=== PATIENT | male | born 1950 | race Caucasian/White ===

== ENCOUNTER 2021-10-22 21:23 | Emergency (ER) | payer MEDICARE, SELFPAY ==
[2021-10-22 21:55] VITALS: BP 195/92; PULSE 70; RESP 18; TEMP 36.8; O2SAT 100
--- NOTE | 2021-10-22 23:16 | ED.LOWEXIN ---
HPI - Extremity Injury (Lower) General Chief Complaint: Extremity Injury, Lower Stated Complaint: possible DVT Time Seen by Provider: 10/22/21 23:03 Source: patient Mode of arrival: ambulatory Limitations: no limitations History of Present Illness HPI Narrative: Pt presents with LLE swelling and some nots and redness to the left calf. Pt denies CP or SOB. Pt has a history of DVT and PE and takes Coumadin. Relieving factors: nothing Exacerbating factors: nothing Related Data Allergies Allergy/AdvReac Type Severity Reaction Status Date / Time No Known Allergies Allergy Mild Verified 10/22/21 22:04 Review of Systems Review of Systems: All systems reviewed & are unremarkable except as noted in HPI and below Exam Const: General: no acute distress Orientation/consciousness: patient oriented x3 Resp: Effort & Inspection: normal respiratory effort Auscultation: clear to auscultation bilaterally Cardio: Rate: regular rate Rhythm: regular rhythm GI: GI Palp: Yes Soft to palpation Auscultation: normal bowel sounds Neuro: General: patient oriented x3, moves all extremities and no focal motor deficits Speech: normal speech Extrem: Other: both legs edematous but left greater than right with area of erythema on medial side and small lumpts on back of left calf Psych: Appearance: grossly normal Mental Status: mental status grossly normal Thought content: Yes Normal thought content present Course Vital Signs Vital signs: Vital Signs Temperature 98.3 F 10/22/21 21:55 Pulse Rate 70 10/22/21 21:55 Respiratory Rate 18 10/22/21 21:55 Blood Pressure 195/92 H 10/22/21 21:55 Pulse Oximetry 100 10/22/21 21:55 Temperature 98.3 F 10/22/21 21:55 Pulse Rate 72 10/23/21 00:43 Respiratory Rate 18 10/23/21 00:43 Blood Pressure 173/92 H 10/23/21 00:43 Pulse Oximetry 100 10/23/21 00:43 MDM - Extremity Injury (Lower) Lab Data Result diagrams: 10/22/21 23:15 10/22/21 23:15 Labs: Lab Results 10/22/21 10/22/21 10/22/21 Range/Units 23:15 23:15 23:15 WBC 6.4 (4.5-10.0) K/mm3 RBC 5.28 (4.6-6.20) M/mm3 Hgb 16.5 (14.0-18.0) g/dL Hct 48.8 (42.0-52.0) % MCV 92.4 (80-100) fl MCH 31.3 (26-34) pg MCHC 33.8 (32-36) g/dl RDW 13.4 (11.5-14.5) % Plt Count 145 L (150-375) k/mm3 MPV 11.8 H (7.4-10.4) fl Immature Gran % (Auto) 0.2 (0-0.5) % Neut % (Auto) 64.4 (45.5-73.1) % Lymph % (Auto) 25.5 (18.3-44.2) % [place] % (Auto) 7.5 (2.6-8.5) % Eos % (Auto) 1.9 (0-4.4) % Baso % (Auto) 0.5 (0.2-1.2) % Lymph # (Auto) 1.63 (0.9-3.2) K/mm3 [place] # (Auto) 0.5 (0.1-0.6) K/mm3 Eos # (Auto) 0.1 (0-0.3) K/mm3 Baso # (Auto) 0.0 (0.0-0.1) K/mm3 Abs Immat Gran (auto) 0.01 (0.00-0.031) K/mm3 Absolute Neuts (auto) 4.1 (1.3-6.7) K/mm3 Absolute Nucleated RBC 0.0 (0.0-0.012) K/mm3 Nucleated RBC % 0.0 (0.0-0.2) % PT 25.0 H (11.1-14.7) Seconds INR 2.4 APTT 37.8 H (22.3-36.8) SECONDS Sodium 139 (137-145) mmol/L Potassium 3.8 (3.4-5.0) mmol/L Chloride 103 (98-107) mmol/L Carbon Dioxide 31 H (22-30) mmol/L Anion Gap 5 L (8-16) mmol/L BUN 17 (9-20) mg/dL Creatinine 0.90 (0.7-1.3) mg/dL Estim Creat Clear Calc 86 ml/min Estimated GFR > 60 (59 - ) Glucose 96 (65-110) mg/dL Calcium 9.1 (8.4-10.2) mg/dL Total Bilirubin 0.7 (0.2-1.3) mg/dL AST 41 (17-59) U/L ALT 36 (4-50) U/L Alkaline Phosphatase 74 (38-126) U/L Total Protein 8.0 (6.3-8.2) g/dL Albumin 4.7 (3.5-5.1) g/dL Discharge Plan Discharge Clinical Impression: Left leg swelling Patient Disposition: Home, Self-Care Condition: Stable Instructions: Antibiotic Form, Deep Vein Thrombosis (ED), Leg Edema (ED) Additional Instructions: return here tomorrow for venous doppler LLE, results to Dr Julio Flores Follow-up/Refer
[2021-10-22 23:24] LABS: Basophils Percent Auto 0.5 % (0.2-1.2); Eosinophils Absolute Auto 0.1 K/mm3 (0-0.3); Eosinophils Percent Auto 1.9 % (0-4.4); Hematocrit 48.8 % (42.0-52.0); Hemoglobin 16.5 g/dL (14.0-18.0); Immature Granulocyte Absolute 0.01 K/mm3 (0.00-0.031); Immature Granulocyte Percent A 0.2 % (0-0.5); Lymphocytes Absolute Auto 1.63 K/mm3 (0.9-3.2); Lymphocytes Percent Auto 25.5 % (18.3-44.2); Mean Corpuscular HGB Conc 33.8 g/dl (32-36); Mean Corpuscular Hemoglobin 31.3 pg (26-34); Mean Corpuscular Volume 92.4 fl (80-100); Mean Platelet Volume 11.8 fl (7.4-10.4); Monocytes Absolute Auto 0.5 K/mm3 (0.1-0.6); Monocytes Percent Auto 7.5 % (2.6-8.5); Neutrophils Absolute Auto 4.1 K/mm3 (1.3-6.7); Neutrophils Percent Auto 64.4 % (45.5-73.1); Platelet Count Result 145 k/mm3 (150-375); Red Blood Count 5.28 M/mm3 (4.6-6.20); Red Cell Distribution Width 13.4 % (11.5-14.5); White Blood Count 6.4 K/mm3 (4.5-10.0)
[2021-10-22 23:32] LABS: Alanine Aminotransferase 36 U/L (4-50); Albumin Level 4.7 g/dL (3.5-5.1); Alkaline Phosphatase 74 U/L (38-126); Anion Gap 5 mmol/L (8-16); Aspartate Amino Transferase 41 U/L (17-59); Bilirubin,Total 0.7 mg/dL (0.2-1.3); Blood Urea Nitrogen 17 mg/dL (9-20); Calcium 9.1 mg/dL (8.4-10.2); Carbon Dioxide 31 mmol/L (22-30); Chloride 103 mmol/L (98-107); Estimated CRCL calculation 86 ml/min; Estimated Glomerular Filt Rate > 60; Glucose 96 mg/dL (65-110); Potassium 3.8 mmol/L (3.4-5.0); Sodium 139 mmol/L (137-145)
[2021-10-22 23:33] LABS: INR 2.4
[2021-10-22 23:34] LABS: Partial Thromboplastin Time 37.8 SECONDS (22.3-36.8)
[2021-10-23] MEDS: ENOXAPARIN 120 MG/0.8 ML SYRINGE 110 MG SUB-Q (00:35)
[2021-10-23 00:43] VITALS: BP 173/92; PULSE 72; RESP 18; O2SAT 100
== END 2021-10-23 00:45 | disposition home or self-care (01) ==
PROVIDERS: Emergency Provider Emergency Medicine; PCP Internal Medicine Gastroenterology
DX: R22.42 Localized swelling, mass and lump, left lower limb (principal)
CPT/HCPCS: 36415; 80053; 85025; 85610; 85730; 96372; 99283; J1650

== ENCOUNTER 2021-10-23 08:16 | Outpatient (CLI) | payer MEDICARE, SELFPAY ==
--- NOTE | ~2021-10-23 | US_ITS ---
EXAMINATION: US venous doppler [facility] DATE: 10/23/2021 09:16 INDICATION: Left lower limb edema and pain. TECHNIQUE: Grayscale ultrasound images without and with compression and Doppler ultrasound images of the left lower extremity veins were obtained. COMPARISON: Ultrasound 11/24/2004 FINDINGS: The visualized portions of left common femoral vein, profunda (deep) femoral vein, femoral vein, popl iteal vein, peroneal veins, posterior tibial veins, and greater saphenous vein outflow are patent. Th ere is a thrombosed superficial vein in left calf. IMPRESSION: 1. No deep venous thrombosis. 2. Thrombosed superficial vein in left calf. Reviewed, dictated and finalized at location A.
== END 2021-10-23 08:17 | disposition home or self-care (01) ==
PROVIDERS: PCP Internal Medicine Gastroenterology; Visit Provider Emergency Medicine
DX: I82.4Z2 Acute embolism and thrombosis of unspecified deep veins of left distal lower extremity (principal); R60.0 Localized edema
CPT/HCPCS: 93971

== ENCOUNTER 2023-01-12 13:00 | Emergency (ER) | payer MEDICARE, SELFPAY ==
--- NOTE | ~2023-01-12 | US_ITS ---
EXAMINATION: US venous doppler [facility] DATE: 01/12/2023 14:09 INDICATION: SWELLING, REDNESS, H/O SUP THROMBOPHLEBITIS and varicose veins. TECHNIQUE: Grayscale images without and with compression and Doppler images of the left lower extremi ty veins were obtained. COMPARISON: 10/23/2021 FINDINGS: The left common femoral vein, profunda (deep) femoral vein, femoral vein, popliteal vein, peroneal v ein, posterior tibial veins, gastrocnemius vein, and greater saphenous vein are patent. Subcutaneous edema. IMPRESSION: 1. Patent left lower extremity veins. No evidence of deep venous thrombosis. Reviewed, dictated and finalized at location K.
[2023-01-12 13:10] VITALS: BP 165/60; PULSE 87; RESP 18; TEMP 37.5; O2SAT 95
[2023-01-12 13:37] LABS: Basophils Percent Auto 0.2 % (0.2-1.2); Eosinophils Percent Auto 0.1 % (0-4.4); Hematocrit 46.8 % (42.0-52.0); Hemoglobin 15.6 g/dL (14.0-18.0); Immature Granulocyte Absolute 0.02 K/mm3 (0.00-0.031); Immature Granulocyte Percent A 0.2 % (0-0.5); Lymphocytes Percent Auto 9.1 % (18.3-44.2); Mean Corpuscular HGB Conc 33.3 g/dl (32-36); Mean Corpuscular Hemoglobin 30.2 pg (26-34); Mean Corpuscular Volume 90.7 fl (80-100); Mean Platelet Volume 11.9 fl (7.4-10.4); Monocytes Absolute Auto 0.6 K/mm3 (0.1-0.6); Monocytes Percent Auto 5.8 % (2.6-8.5); Neutrophils Absolute Auto 8.4 K/mm3 (1.3-6.7); Neutrophils Percent Auto 84.6 % (45.5-73.1); Platelet Count Result 128 k/mm3 (150-375); Red Blood Count 5.16 M/mm3 (4.6-6.20); Red Cell Distribution Width 14.1 % (11.5-14.5); White Blood Count 9.9 K/mm3 (4.5-10.0)
[2023-01-12 13:41] LABS: Alanine Aminotransferase 31 U/L (6-50); Albumin Level 4.4 g/dL (3.5-5.1); Alkaline Phosphatase 65 U/L (38-126); Anion Gap 5 mmol/L (8-16); Aspartate Amino Transferase 30 U/L (17-59); Bilirubin,Total 1.2 mg/dL (0.2-1.3); Blood Urea Nitrogen 14 mg/dL (9-20); Carbon Dioxide 27 mmol/L (22-30); Chloride 103 mmol/L (98-107); Estimated CRCL calculation 106 ml/min; Estimated Glomerular Filt Rate > 60; Glucose 115 mg/dL (65-110); Potassium 3.9 mmol/L (3.4-5.0); Sodium 135 mmol/L (137-145)
[2023-01-12 13:42] LABS: INR 3.9; Prothrombin Time 41.5 Seconds (11.1-14.7)
[2023-01-12 13:43] LABS: Partial Thromboplastin Time 50.9 SECONDS (22.3-36.8)
--- NOTE | 2023-01-12 16:10 | ED.EXTPRO ---
HPI - Extremity Problem General Chief complaint: Extremity Problem,Nontraumatic Stated complaint: r/o dvt LLE Time Seen by Provider: 01/12/23 15:38 History of Present Illness HPI Narrative: Patient is a 72-year-old male presenting with left leg swelling. Patient states that he has had DVTs in the past. He is on chronic Coumadin therapy. States that for the last several days he has had swelling and redness in his left calf. States that he had a low-grade fever of 100.4 earlier today. States he is concerned that he has a clot so he came in for evaluation. States that the area is somewhat painful. He denies headaches, numbness or weakness, chest pain, shortness of breath, nausea or vomiting, diarrhea, dysuria. Related Data Allergies Allergy/AdvReac Type Severity Reaction Status Date / Time No Known Allergies Allergy Mild Verified 01/12/23 15:25 Review of Systems Review of Systems: All systems reviewed & are unremarkable except as noted in HPI and below Exam Narrative: GENERAL: Well-appearing, well-nourished, and in no acute distress. Pleasant and cooperative HEAD: Normocephalic, atraumatic. EYES: PERRLA and EOMI. ENT: Nares clear, no rhinorrhea or epistaxis. Mucous membranes moist. NECK: Supple. CHEST: No respiratory distress. HEART: Regular rate and rhythm. . Normal peripheral pulses. ABDOMEN: Soft, nontender, nondistended EXTREMITIES: Normal range of motion. left calf with warmth, erythema, mild tenderness; no wounds or blisters, distal pulses 2+ SKIN: Warm, dry, see above NEURO: No focal deficits. Alert and oriented x3. PSYCH: Normal mood and affect. Course Course Emergency Course: Received call from pharmacy for Bactrim interacts with warfarin, switch to oral doxycycline via verbal order. Vital Signs Vital signs: Vital Signs Temperature 99.5 F 01/12/23 13:10 Pulse Rate 87 01/12/23 13:10 Respiratory Rate 18 01/12/23 13:10 Blood Pressure 165/60 H 01/12/23 13:10 Pulse Oximetry 95 01/12/23 13:10 Temperature 99.5 F 01/12/23 13:10 Pulse Rate 87 01/12/23 13:10 Respiratory Rate 18 01/12/23 13:10 Blood Pressure 165/60 H 01/12/23 13:10 Pulse Oximetry 95 01/12/23 13:10 MDM - Extremity (Nontraumatic) MDM Narrative Medical decision making narrative: Patient is a 72-year-old male presenting with left leg redness and swelling. Vitals are within normal limits. Patient is nontoxic and in no acute distress. Exam remarkable for the above. Ultrasound of the lower extremity reveals no DVT. His blood work is reassuring. I am concerned for cellulitis. We will start him on Keflex and Bactrim. Advised close PCP follow-up. Appropriate return precautions given. Patient voiced understanding and is agreeable with plan. Discharged in stable condition. Differential Diagnosis Differential diagnosis: Likely cellulitis, superficial thrombophlebitis, lower extremity edema and deep vein thrombosis of lower extremity Medical Records Attestation: I reviewed the patient's medical records. Lab Data Attestation: I reviewed the patient's lab results. 01/12/23 13:18 01/12/23 13:18 Labs: Lab Results 01/12/23 Range/Units 13:18 WBC 9.9 (4.5-10.0) K/mm3 RBC 5.16 (4.6-6.20) M/mm3 Hgb 15.6 (14.0-18.0) g/dL Hct 46.8 (42.0-52.0) % MCV 90.7 (80-100) fl MCH 30.2 (26-34) pg MCHC 33.3 (32-36) g/dl RDW 14.1 (11.5-14.5) % Plt Count 128 L (150-375) k/mm3 MPV 11.9 H (7.4-10.4) fl Immature Gran % (Auto) 0.2 (0-0.5) % Neut % (Auto) 84.6 H (45.5-73.1) % Lymph % (Auto) 9.1 L (18.3-44.2) % [place] % (Auto) 5.8 (2.6-8.5) % Eos % (Auto) 0.1 (0-4.4) % Baso % (Auto) 0.2 (0.2-1.2) % Lymph # (Auto) 0.90 (0.9-3.2) K/mm3 [place] # (Auto) 0.6 (0.1-0.6) K/mm3 Eos # (Auto) 0.0 (0-0.3) K/mm3 Baso # (Auto) 0.0 (0.0-0.1) K/mm3 Abs Immat Gran (auto) 0.02 (0.00-0.031) K/mm3 Absolute Neuts (auto) 8.4 H (1.3-6.7) K/mm3 Absolute
== END 2023-01-12 16:49 | disposition home or self-care (01) ==
PROVIDERS: Emergency Provider Emergency Medicine; PCP Internal Medicine Gastroenterology
DX: L03.116 Cellulitis of left lower limb (principal); Z86.718 Personal history of other venous thrombosis and embolism; Z79.01 Long term (current) use of anticoagulants
CPT/HCPCS: 36415; 80053; 85025; 85610; 85730; 93971; 99284

== ENCOUNTER 2024-10-12 21:32 | Emergency (ER) | payer MEDICARE, SELFPAY ==
--- OUTSIDE RECORDS SUMMARY | 2024-10-12 21:34 | XMS_ITS | Data Portability ---
Author Organization [facility] Address [address] [facility] [address] Care Team Providers Care [employer] Psychologist Name Role Phone JULIO FLORES Primary Care Provider [phone] Assessment No assessment recorded. Plan of Treatment Reminders Order Date Submit Date Provider Last Modified By Organization Details Last Modified Time Details Appointments ANY 15 2024 10:45A M Julio Flores MD Not available Not available Not available Lab PT/INR - First draw in December 20232023 024 YASH [facility], [address], [address], [place], [address], 12/15/2023 15:15:05 PT/INR - First draw in December 20232023 024 YASH [facility], [address], [address], [place], [address], 04/07/2024 15:12:11 PT/INR - First draw in December 20232023 024 YASH [facility], [address], [address], [place], [address], 05/10/2024 06:19:07 PT/INR - First draw in December 20232023 024 [facility], [address], [address], [place], [address], 08/16/2024 11:37:26 PT/INR - First draw in December 20232024 025 [facility], [address], [address], [place], [address], 09/07/2024 11:25:50 PT/INR - First draw in December 20232024 025 [email or web address] [facility], [address], [address], [place], [address], 10/06/2024 10:01:40 PT/INR - First draw in December 20232024 025 YASH [facility], [address], [address], [place], [address], 10/12/2024 03:01:21 lipid panel, serum 2023 024 YASH [facility], [address], [address], [place], [address], 12/15/2023 15:15:03 CMP, serum or plasma 2023 024 YASH [facility], [address], [address], [place], [address], 12/15/2023 15:15:04 noninva sive [place] cancer DNA + occult blood screeni ng, narrati ve, interpr etation , stool 2023 024 [email or web address] [facility], [address], [address], [place], [address], 03/30/2024 15:24:14 PSA, total, serum or plasma 2023 024 YASH [facility], [address], [address], [place], [address], 12/15/2023 15:15:06 urinaly sis, dipstic k 2023 024 YASH In-Office Order, Internal Use Only DO Not Attach Compendium DO Not Attach Compendium, Do Not Delete/merge, [id number] 12/10/2023 12:39:33 culture , urine 2023 024 YASH [facility], [address], [place], [address], 12/15/2023 15:15:12 CBC 2023 024 YASH [facility], [address], [address], [place], [address], 12/15/2023 15:15:07 PT panel, coagula tion, platele t poor plasma 2022 023 [email or web address] [facility], [address], [place], [address], 03/24/2023 12:18:26 CMP, serum or plasma 2021 022 YASH [facility], [address], [address], [place], [address], 03/27/2022 09:12:04 CBC 2021 022 YASH [facility], [address], [place], [address], 03/27/2022 09:12:06 lipid panel, serum 2021 022 YASH [facility], [address], [place], [address], 03/27/2022 09:12:04 PSA, total, serum or plasma 2021 022 LA [facility], [address], [address], [place], [address], 03/27/2022 09:12:05 noninva sive colorec river cancer DNA + occult blood screeni ng, QL, stool 2021 022 [facility] (Cologuard Orders Only), [address], [address], [place], [address], 03/11/2023 14:40:22 Referral None recorde d. Procedures None recorde d. Surgeries None recorde d. Imaging None recorde d. Medication Orders warfari n 10 mg tablet 2024 025 [facility] [address] In [facility], [address] [place] [address], [address], 08/16/2024 12:18:39 warfari n 7.5 mg tablet 2024 025 Y[facility] [address] In [facility], [address] [place] [address], [address], 08/16/2024 12:18:38 lisinop ril 2.5 mg tablet 2024 025 [facility] [address] In [facility], [address] [place] [address], [address], 08/16/2024 12:34:11 cyclobe nzaprin e 5 mg tablet 2024 025 [facility] [address] In [facility], [address] [place] [address], [address], 08/16/2024 12:34:11 warfari n 10 mg tablet 2022 023 [facility] [address], [address], 02/17/2023 12:52:24 warfari n 7.5 mg tablet 2022 023 [facility] [address] In [facility], [address] [place], [address], 02/17/2023 12:52:24 warfari n 4 mg tablet 2022 023 [facility] [address] In [facility], [address] [place] [address], [address], 02/17/2023 12:52:25 simvast atin 20 mg tablet 2022 023 [facility] [address] In [facility], [facility] [place] [place], [address], 02/17/2023 12:52:25 cyclobe nzaprin e 5 mg tablet 2021 022 [email or web address] [facility] [address] In [facility], [address] [place] [address], [address], 02/17/2023 12:49:42 Patient TargetsNo targets recorded. Patient Instructions Encounter Date Encounter Id Patient Instructions Last Modified By Organization Details Last Modified Time 03/11/2022 [id number] When You Want to Lose Weight: Care Instructions [email or web address] Not available 03/11/2022 13:01:06 back care and preventing injuries: care instructions [email or web address] Not available 03/11/2022 13:01:07 01/21/2023 [id number] A healthy lifestyle: care instructions [email or web address] Not available 01/21/2023 17:22:52 02/17/2023 [id number] A healthy lifestyle: care instructions [email or web address] Not available 02/17/2023 12:52:22 12/10/2023 [id number] back care and preventing injuries: care instructions Not available 12/10/2023 12:12:45 high cholesterol : care instructions [email or web address] Not available 12/10/2023 12:12:44 A healthy lifestyle: care instructions Not available 12/10/2023 12:12:45 blood in the urine: care instructions [email or web address] Not available 12/10/2023 12:12:45 Reason for Referral None Reported. Results Created Date Observation Date Name Description Value Unit Range Abnormal Flag Note LastModifiedBy Organization Detail LastModifiedTime 03/11/2003/11/2023 COLOG UARD cologuard result Cancel led - Order d not applic able Not Available [facility] (Cologuard Orders Only) [address], [place], [address], 03/11/2023 14:40:22 03/17/20 22 03/17/2022 COLOG UARD cologuard result Cancel led - Order d not applic able Not Available [facility] (Cologuard Orders Only) [address], [place], [address], 03/17/2022 07:53:58 02/14/20 22 02/14/2022 PROTH ROMBI N TIME (PT) INR 1.5 0.9-1. 2 above high normal Refer ence inter jonathan is for non-a ntico agula edith patie nts. Sugge sted INR thera peuti c range for Vitam in K antag onist thera py: Stand danisha Dose (mode rate inten sity thera peuti c range ): 2.0 - 3.0 Highe r inten sity thera peuti c range 2.5 - 3.5 Not Available [facility] ([facility]) [address] [place], [address], 02/14/2022 07:12:13 02/14/20 22 02/14/2022 PROTH ROMBI N TIME (PT) prothrombin time 16.2 sec 9.1-12 .0 above high normal Not Available [facility] ([facility]) [address] [place], [address], 02/14/2022 07:12:13 03/26/20 22 03/27/2022 LIPID PANEL cholesterol, total 219 mg/dL 100-19 9 above high normal Not Available [facility] ([facility]) [address] [facility], [place], [address], 03/27/2022 09:12:04 03/26/2003/27/2022 LIPID PANEL triglyceride s 52 mg/dL 0-149 Not Available [facility] ([facility]) [address] [facility] [place], [address], 03/27/2022 09:12:04 03/26/20 22 03/27/2022 LIPID PANEL HDL cholesterol 51 mg/dL >39 Not Available [facility] ([facility]) [address] [facility], [place], [address], 03/27/2022 09:12:04 03/26/20 22 03/27/2022 LIPID PANEL VLDL cholesterol suresh 9 mg/dL 5-40 Not Available [facility] ([facility]) [address] [facility] [place], [address], 03/27/2022 09:12:04 03/26/20 22 03/27/2022 LIPID PANEL LDL chol calc ([facility]) 159 mg/dL 0-99 above high normal Not Available [facility] ([facility]) [address] [facility] [place], [address], 03/27/2022 09:12:04 03/26/20 22 03/27/2022 COMP. METAB OLIC PANEL (14) glucose 99 mg/dL 70-99 Ple ase note refer ence tyron aiken e Not Available [facility] ([facility]) [address] [facility], [place], [address], 03/27/2022 09:12:04 03/26/2003/27/2022 COMP. METAB OLIC PANEL (14) BUN 26 mg/dL 8-27 Not Available [facility] ([facility]) [address] [facility] [place], [address], 03/27/2022 09:12:04 03/26/20 22 03/27/2022 COMP. METAB OLIC PANEL (14) creatinine 0.83 mg/dL 0.76-1 .27 Not Available [facility] ([facility]) [address] [facility] [place], [address], 03/27/2022 09:12:04 03/26/20 22 03/27/2022 COMP. METAB OLIC PANEL (14) eGFR 93 mL/mi n/1.7 3 >59 Not Available [facility] ([facility]) [address] [place], [address], 03/27/2022 09:12:04 03/26/20 22 03/27/2022 COMP. METAB OLIC PANEL (14) BUN/creatini ne ratio 31 10-24 above high normal Not Available [facility] ([facility]) [address] [facility] [place], [address], 03/27/2022 09:12:04 03/26/20 22 03/27/2022 COMP. METAB OLIC PANEL (14) sodium 141 mmol/ L 134-14 4 Not Available [facility] ([facility]) [address] [facility] [place], [address], 03/27/2022 09:12:04 03/26/20 22 03/27/2022 COMP. METAB OLIC PANEL (14) potassium 5.1 mmol/ L 3.5-5. 2 Not Available [facility] ([facility]) [address] [facility] [place], [address], 03/27/2022 09:12:04 03/26/20 22 03/27/2022 COMP. METAB OLIC PANEL (14) chloride 103 mmol/ L 96-106 Not Available [facility] ([facility]) [address] [facility] [place], [address], 03/27/2022 09:12:04 03/26/20 22 03/27/2022 COMP. METAB OLIC PANEL (14) carbon dioxide, total 21 mmol/ L 20-29 Not Available [facility] ([facility]) [address] [place], [address], 03/27/2022 09:12:04 03/26/20 22 03/27/2022 COMP. METAB OLIC PANEL (14) calcium 9.0 mg/dL 8.6-10 .2 Not Available [facility] ([facility]) [address], [place], [address], 03/27/2022 09:12:04 03/26/20 22 03/27/2022 COMP. METAB OLIC PANEL (14) protein, total 6.4 g/dL 6.0-8. 5 Not Available [facility] ([facility]) [address] [place], [address], 03/27/2022 09:12:04 03/26/20 22 03/27/2022 COMP. METAB OLIC PANEL (14) albumin 4.2 g/dL 3.7-4. 7 Not Available [facility] ([facility]) [address], [place], [address], 03/27/2022 09:12:04 03/26/20 22 03/27/2022 COMP. METAB OLIC PANEL (14) globulin, total 2.2 g/dL 1.5-4. 5 Not Available [facility] ([facility] [address] [facility] [place], [address], 03/27/2022 09:12:04 03/26/20 22 03/27/2022 COMP. METAB OLIC PANEL (14) A/G ratio 1.9 1.2-2. 2 Not Available [facility] ([facility] [address] [facility] [place], [address], 03/27/2022 09:12:04 03/26/20 22 03/27/2022 COMP. METAB OLIC PANEL (14) bilirubin, total <0.2 mg/dL 0.0-1. 2 Not Available [facility] ([facility] [place] [facility]) [address] [facility], [place], [address], 03/27/2022 09:12:04 03/26/20 22 03/27/2022 COMP. METAB OLIC PANEL (14) alkaline phosphatase 61 IU/L 44-121 Not Available [facility] ([facility]) [address] [place], [address], 03/27/2022 09:12:04 03/26/20 22 03/27/2022 COMP. METAB OLIC PANEL (14) AST (SGOT) 23 IU/L 0-40 Not Available [facility] ([facility]) [address] [place], [address], 03/27/2022 09:12:04 03/26/20 22 03/27/2022 COMP. METAB OLIC PANEL (14) ALT (SGPT) 21 IU/L 0-44 Not Available [facility] ([facility]) [address] [place], [address], 03/27/2022 09:12:04 03/26/20 22 03/27/2022 PROST ATE-S PECIF IC AG prostate specific Ag 1.8 NG/mL 0.0-4. 0 Carlo Sa ECLIA metho dolog y. Accor ding to the Ameri can Urolo gical Assoc iatio n, Serum PSA shoul d decre ase and remai n at undet ectab le level s after radic al prost atect miryam. The AUA defin es bioch emica l recur rence as an initi al PSA value 0.2 ng/mL or great er follo wed by a subse quent confi rmato ry PSA value 0.2 ng/mL or great er. Value s obtai michaelle with diffe rent assay metho ds or kits canno t be used inter aiken eachatay . Resul ts canno t be inter prete d as absol ho-chunk evide nce of the prese nce or absen ce of parveen gonzalez disea se. Not Available [facility] ([facility]) [address] [place], [address], 03/27/2022 09:12:05 03/26/2003/27/2022 CBC, PLATE LET, NO DIFFE RENTI AL WBC 4.9 x10e3 /uL 3.4-10 .8 Not Available [facility] ([facility]) [address] [facility], [place], [address], 03/27/2022 09:12:06 03/26/2003/27/2022 CBC, PLATE LET, NO DIFFE RENTI AL RBC 5.08 x10e6 /uL 4.14-5 .80 Not Available [facility] ([facility]) [address] [place], [address], 03/27/2022 09:12:06 03/26/2003/27/2022 CBC, PLATE LET, NO DIFFE RENTI AL hemoglobin 15.5 g/dL 13.0-1 7.7 Not Available [facility] ([facility]) [address] [place], [address], 03/27/2022 09:12:06 03/26/2003/27/2022 CBC, PLATE LET, NO DIFFE RENTI AL hematocrit 44.9 % 37.5-5 1.0 Not Available [facility] ([facility]) [address] [place], [address], 03/27/2022 09:12:06 03/26/2003/27/2022 CBC, PLATE LET, NO DIFFE RENTI AL MCV 88 fL 79-97 Not Available [facility] ([facility]) [address] [place], [address], 03/27/2022 09:12:06 03/26/2003/27/2022 CBC, PLATE LET, NO DIFFE RENTI AL MCH 30.5 pg 26.6-3 3.0 Not Available [facility] ([facility]) [address] [place], [address], 03/27/2022 09:12:06 03/26/20 22 03/27/2022 CBC, PLATE LET, NO DIFFE RENTI AL MCHC 34.5 g/dL 31.5-3 5.7 Not Available [facility] ([facility]) [address] [facility], [place], [address], 03/27/2022 09:12:06 03/26/20 22 03/27/2022 CBC, PLATE LET, NO DIFFE RENTI AL RDW 13.0 % 11.6-1 5.4 Not Available [facility] ([facility]) [address] [facility], [place], [address], 03/27/2022 09:12:06 03/26/2003/27/2022 CBC, PLATE LET, NO DIFFE RENTI AL platelets 158 x10e3 /uL 150-45 0 Not Available [facility] ([facility]) [address] [facility], [place], [address], 03/27/2022 09:12:06 08/01/19 23 08/01/2022 PROTH ROMBI N TIME (PT) INR 1.7 0.4-2. 0 Pleas e note Refer ence Range has aiken ed Not Available [facility] [address] [place], [address], 08/01/2022 19:08:32 08/01/19 23 08/01/2022 PROTH ROMBI N TIME (PT) prothrombin time 16.6 secon ds 9.1-11 .0 above high normal Not Available [facility] [address] [place], [address], 08/01/2022 19:08:32 11/26/19 23 11/26/2022 PROTH ROMBI N TIME (PT) INR 4.0 0.9-1. 2 above high normal Refer ence inter jonathan is for non-a ntico agula edith patie nts. Sugge sted INR thera peuti c range for Vitam in K antag onist thera py: Stand danisha Dose (mode rate inten sity thera peuti c range ): 2.0 - 3.0 Highe r inten sity thera peuti c range 2.5 - 3.5 Not Available [facility] ([facility]) [address] [place], [address], 11/26/2022 08:24:03 11/26/1911/26/2022 PROTH ROMBI N TIME (PT) prothrombin time 38.5 sec 9.1-12 .0 above high normal Not Available [facility] ([facility]) [address] [place], [address], 11/26/2022 08:24:03 01/22/2001/22/2023 PROTH ROMBI N TIME (PT), SERIA L INR 6.1 0.9-1. 2 panic high Abnor mal resul t has been verif ied by repeshane t testi ng. If incon siste nt with clini suresh condi tion, pleas e resub petey anoth er speci men for verif icati on and to rule out speci men handl ing probl ems for which this test is very sensi tive. Refer ence inter jonathan is for non-a ntico agula edith melvin nts. Sugge sted INR thera peuti c range for Vitam in K antag onist thera py: Stand danisha Dose (mode rate inten sity thera peuti c range ): 2.0 - 3.0 Highe r inten sity thera peuti c range 2.5 - 3.5 Not Available [facility] ([facility]) [address] [place], [address], 01/22/2023 17:10:09 01/22/20 23 01/22/2023 PROTH ROMBI N TIME (PT), SERIA L prothrombin time 58.1 sec 9.1-12 .0 above high normal Not Available [facility] ([facility]) [address] [place], [address], 01/22/2023 17:10:09 01/22/20 23 01/22/2023 PROTH ROMBI N TIME (PT), SERIA L pdf . Not Available [facility] ([facility]) [address] [facility], [place], [address], 01/22/2023 17:10:09 01/30/20 23 01/30/2023 PROTH ROMBI N TIME (PT), SERIA L INR 1.1 0.9-1. 2 Refer ence inter jonathan is for non-a ntico agula edith patie nts. Sugge sted INR thera peuti c range for Vitam in K antag onist thera py: Stand danisha Dose (mode rate inten sity thera peuti c range ): 2.0 - 3.0 Highe r inten sity thera peuti c range 2.5 - 3.5 Not Available [facility] ([facility]) [address] [facility], [place], [address], 01/30/2023 13:11:58 01/30/20 23 01/30/2023 PROTH ROMBI N TIME (PT), SERIA L prothrombin time 11.8 sec 9.1-12 .0 Not Available [facility] ([facility]) [address] [place], [address], 01/30/2023 13:11:58 01/30/20 23 01/30/2023 PROTH ROMBI N TIME (PT), SERIA L pdf . Not Available [facility] ([facility]) [address] [place], [address], 01/30/2023 13:11:58 02/14/20 23 02/14/2023 PROTH ROMBI N TIME (PT), SERIA L INR 1.1 0.9-1. 2 Refer ence inter jonathan is for non-a ntico agula edith patie nts. Sugge sted INR thera peuti c range for Vitam in K antag onist thera py: Stand danisha Dose (mode rate inten sity thera peuti c range ): 2.0 - 3.0 Highe r inten sity thera peuti c range 2.5 - 3.5 Not Available [facility] ([facility]) [address] [facility], [place], [address], 02/16/2023 15:09:43 02/14/20 23 02/14/2023 PROTH ROMBI N TIME (PT), SERIA L prothrombin time 11.9 sec 9.1-12 .0 Not Available [facility] ([facility]) [address] [place], [address], 02/16/2023 15:09:43 02/14/20 23 02/16/2023 PROTH ROMBI N TIME (PT), SERIA L pdf . Not Available [facility] ([facility]) [address] [facility], [place], [address], 02/16/2023 15:09:43 03/04/20 23 03/05/2023 PROTH ROMBI N TIME (PT), SERIA L INR 2.5 0.9-1. 2 above high normal Refer ence inter jonathan is for non-a ntico agula edith patie nts. Sugge sted INR thera peuti c range for Vitam in K antag onist thera py: Stand danisha Dose (mode rate inten sity thera peuti c range ): 2.0 - 3.0 Highe r inten sity thera peuti c range 2.5 - 3.5 Not Available [facility] ([facility]) [address] [facility], [place], [address], 03/05/2023 13:11:39 03/04/20 23 03/05/2023 PROTH ROMBI N TIME (PT), SERIA L prothrombin time 24.5 sec 9.1-12 .0 above high normal Not Available [facility] ([facility]) [address] [place], [address], 03/05/2023 13:11:39 03/04/20 23 03/05/2023 PROTH ROMBI N TIME (PT), SERIA L pdf . Not Available [facility] ([facility]) [address] [facility], [place], [address], 03/05/2023 13:11:39 06/10/20 23 06/11/2023 PROTH ROMBI N TIME (PT), SERIA L INR 3.0 0.9-1. 2 above high normal Refer ence inter jonathan is for non-a ntico agula edith patie nts. Sugge sted INR thera peuti c range for Vitam in K antag onist thera py: Stand danisha Dose (mode rate inten sity thera peuti c range ): 2.0 - 3.0 Highe r inten sity thera peuti c range 2.5 - 3.5 Not Available [facility] ([facility]) [address] [facility], [place], [address], 06/11/2023 13:10:33 06/10/20 23 06/11/2023 PROTH ROMBI N TIME (PT), SERIA L prothrombin time 29.3 sec 9.1-12 .0 above high normal Not Available [facility] ([facility]) [address] [facility], [place], [address], 06/11/2023 13:10:33 06/10/20 23 06/11/2023 PROTH ROMBI N TIME (PT), SERIA L pdf . Not Available [facility] ([facility]) [address] [facility], [place], [address], 06/11/2023 13:10:33 08/26/19 24 08/27/2023 PROTH ROMBI N TIME (PT) INR 1.8 0.9-1. 2 above high normal Refer ence inter jonathan is for non-a ntico agula edith patie nts. Sugge sted INR thera peuti c range for Vitam in K antag onist thera py: Stand danisha Dose (mode rate inten sity thera peuti c range ): 2.0 - 3.0 Highe r inten sity thera peuti c range 2.5 - 3.5 Not Available [facility] ([facility]) [address] [place], [address], 08/27/2023 07:14:59 08/26/19 24 08/27/2023 PROTH ROMBI N TIME (PT) prothrombin time 18.3 sec 9.1-12 .0 above high normal Not Available [facility] ([facility]) [address] [place], [address], 08/27/2023 07:14:59 12/04/19 24 12/05/2023 PROTH ROMBI N TIME (PT), SERIA L INR 1.8 0.9-1. 2 above high normal Refer ence inter jonathan is for non-a ntico agula edith patie nts. Sugge sted INR thera peuti c range for Vitam in K antag onist thera py: Stand danisha Dose (mode rate inten sity thera peuti c range ): 2.0 - 3.0 Highe r inten sity thera peuti c range 2.5 - 3.5 Not Available [facility] ([facility]) [address] [place], [address], 12/07/2023 11:12:33 12/04/19 24 12/05/2023 PROTH ROMBI N TIME (PT), SERIA L prothrombin time 18.1 sec 9.1-12 .0 above high normal Not Available [facility] ([facility]) [address] [place], [address], 12/07/2023 11:12:33 12/04/19 24 12/07/2023 PROTH ROMBI N TIME (PT), SERIA L pdf . Not Available [facility] ([facility]) [address] [place], [address], 12/07/2023 11:12:33 12/10/19 24 12/11/2023 LIPID PANEL cholesterol, total 187 mg/dL 100-19 9 Not Available [facility] [address] [place], [address], 12/15/2023 15:15:03 12/10/19 24 12/11/2023 LIPID PANEL triglyceride s 35 mg/dL 0-149 Not Available [facility] [address] [place], [address], 12/15/2023 15:15:03 12/10/19 24 12/11/2023 LIPID PANEL HDL cholesterol 53 mg/dL >39 Not Available [facility] [address] [place], [address], 12/15/2023 15:15:03 12/10/19 24 12/11/2023 LIPID PANEL VLDL cholesterol suresh 7 mg/dL 5-40 Not Available [facility] [address] [place], [address], 12/15/2023 15:15:03 12/10/19 24 12/11/2023 LIPID PANEL LDL chol calc (nih) 127 mg/dL 0-99 above high normal Not Available [facility] [address] [place], [address], 12/15/2023 15:15:03 12/10/19 24 12/11/2023 COMP. METAB OLIC PANEL (14) glucose 100 mg/dL 70-99 above high normal Not Available [facility] [address] [place], [address], 12/15/2023 15:15:04 12/10/19 24 12/11/2023 COMP. METAB OLIC PANEL (14) BUN 21 mg/dL 8-27 Not Available [facility] [address] [place], [address], 12/15/2023 15:15:04 12/10/19 24 12/11/2023 COMP. METAB OLIC PANEL (14) creatinine 0.80 mg/dL 0.76-1 .27 Not Available [facility] [address] [place], [address], 12/15/2023 15:15:04 12/10/19 24 12/11/2023 COMP. METAB OLIC PANEL (14) eGFR 93 mL/mi n/1.7 3 >59 Not Available [facility] [address] [place], [address], 12/15/2023 15:15:04 12/10/19 24 12/11/2023 COMP. METAB OLIC PANEL (14) BUN/creatini ne ratio 26 10-24 above high normal Not Available [facility] [address] [place], [address], 12/15/2023 15:15:04 12/10/19 24 12/11/2023 COMP. METAB OLIC PANEL (14) sodium 138 mmol/ L 134-14 4 Not Available [facility] [address] [place], [address], 12/15/2023 15:15:04 12/10/19 24 12/11/2023 COMP. METAB OLIC PANEL (14) potassium 4.7 mmol/ L 3.5-5. 2 Not Available [facility] [address] [place], [address], 12/15/2023 15:15:04 12/10/19 24 12/11/2023 COMP. METAB OLIC PANEL (14) chloride 103 mmol/ L 96-106 Not Available [facility] [address] [place], [address], 12/15/2023 15:15:04 12/10/19 24 12/11/2023 COMP. METAB OLIC PANEL (14) carbon dioxide, total 25 mmol/ L 20-29 Not Available [facility] [facility] [address] [place], [address], 12/15/2023 15:15:04 12/10/19 24 12/11/2023 COMP. METAB OLIC PANEL (14) calcium 9.1 mg/dL 8.6-10 .2 Not Available [facility] [address] [place], [address], 12/15/2023 15:15:04 12/10/19 24 12/11/2023 COMP. METAB OLIC PANEL (14) protein, total 6.0 g/dL 6.0-8. 5 Not Available [facility] [address] [place], [address], 12/15/2023 15:15:04 12/10/19 24 12/11/2023 COMP. METAB OLIC PANEL (14) albumin 4.0 g/dL 3.8-4. 8 Not Available [facility] [address] [place], [address], 12/15/2023 15:15:04 12/10/19 24 12/11/2023 COMP. METAB OLIC PANEL (14) globulin, total 2.0 g/dL 1.5-4. 5 Not Available [facility] [address] [place], [address], 12/15/2023 15:15:04 12/10/19 24 12/11/2023 COMP. METAB OLIC PANEL (14) A/G ratio 2.0 Not Available [facility] [address] [place], [address], 12/15/2023 15:15:04 12/10/19 24 12/11/2023 COMP. METAB OLIC PANEL (14) bilirubin, total 0.6 mg/dL 0.0-1. 2 Not Available [facility] [address] [place], [address], 12/15/2023 15:15:04 12/10/19 24 12/11/2023 COMP. METAB OLIC PANEL (14) alkaline phosphatase 67 IU/L 44-121 Not Available [facility] [address] [place], [address], 12/15/2023 15:15:04 12/10/19 24 12/11/2023 COMP. METAB OLIC PANEL (14) AST (SGOT) 21 IU/L 0-40 Not Available [facility] [address] [place], [address], 12/15/2023 15:15:04 12/10/19 24 12/11/2023 COMP. METAB OLIC PANEL (14) ALT (SGPT) 20 IU/L 0-44 Not Available [facility] [address] [place], [address], 12/15/2023 15:15:04 12/10/19 24 12/15/2023 PROTH ROMBI N TIME, INR prothrombin time 15.9 sec above high normal Refer ence Range : 18 years and older : 9.1 - 12.0 Not Available [facility] [address] [place], [address], 12/15/2023 15:15:05 12/10/19 24 12/15/2023 PROTH ROMBI N TIME, INR INR 1.6 ratio above high normal Refer ence Range : >1 month : 0.9 - 1.2 Not Available [facility] [address] [place], [address], 12/15/2023 15:15:05 12/10/19 24 12/11/2023 PROST ATE-S PECIF IC AG prostate specific Ag 2.1 NG/mL 0.0-4. 0 Carlos A ECLIA metho dolog y. Accor jacob to the Ameri can [employer] g[employer] iatio n, Serum PSA shoul d decre ase and remai n at undet ectab le level s after radic al prost atect miryam. The AUA defin es bioch emica l recur rence as an initi al PSA value 0.2 ng/mL or great er follo wed by a subse quent confi rmato ry PSA value 0.2 ng/mL or great er. Value s obtai michaelle with diffe rent assay metho ds or kits canno t be used inter aiken eably . Resul ts canno t be inter prete d as absol ho-chunk evide nce of the prese nce or absen ce of [facility] se. Not Available [facility] [address] [place], [address], 12/15/2023 15:15:06 12/10/19 24 12/11/2023 CBC, PLATE LET, NO DIFFE RENTI AL WBC 4.7 x10e3 /uL 3.4-10 .8 Not Available [facility] [address] [place], [address], 12/15/2023 15:15:07 12/10/19 24 12/11/2023 CBC, PLATE LET, NO DIFFE RENTI AL RBC 4.79 x10e6 /uL 4.14-5 .80 Not Available [facility] [address] [place], [address], 12/15/2023 15:15:07 12/10/19 24 12/11/2023 CBC, PLATE LET, NO DIFFE RENTI AL hemoglobin 14.8 g/dL 13.0-1 7.7 Not Available [facility] [address] [place], [address], 12/15/2023 15:15:07 12/10/19 24 12/11/2023 CBC, PLATE LET, NO DIFFE RENTI AL hematocrit 43.3 % 37.5-5 1.0 Not Available [facility] [address] [place], [address], 12/15/2023 15:15:07 12/10/19 24 12/11/2023 CBC, PLATE LET, NO DIFFE RENTI AL MCV 90 fL 79-97 Not Available [facility] [address] [facility], [place], [address], 12/15/2023 15:15:07 12/10/19 24 12/11/2023 CBC, PLATE LET, NO DIFFE RENTI AL MCH 30.9 pg 26.6-3 3.0 Not Available [facility] [address] [place], [address], 12/15/2023 15:15:07 12/10/19 24 12/11/2023 CBC, PLATE LET, NO DIFFE RENTI AL MCHC 34.2 g/dL 31.5-3 5.7 Not Available [facility] [address] [place], [address], 12/15/2023 15:15:07 12/10/19 24 12/11/2023 CBC, PLATE LET, NO DIFFE RENTI AL RDW 13.4 % 11.6-1 5.4 Not Available [facility] [address] [place], [address], 12/15/2023 15:15:07 12/10/19 24 12/11/2023 CBC, PLATE LET, NO DIFFE RENTI AL platelets 127 x10e3 /uL 150-45 0 below low normal Not Available [facility] [address] [place], [address], 12/15/2023 15:15:07 12/10/19 24 12/15/2023 URINE CULTU RE, GIOVANNI NE urine culture, routine FINAL REPORT abnormal Not Available [facility] ([facility]) [address] [facility], [place], [address], 12/15/2023 15:15:12 12/10/19 24 12/15/2023 URINE CULTU RE, ROUTI NE result 1 PROVID ENCIA RETTGE RI abnormal 50,00 0-100 ,000 colon y formi ng units per mL Not Available [facility] ([facility]) [address] [facility], [place], [address], 12/15/2023 15:15:12 12/10/19 24 12/15/2023 URINE CULTU RE, ROUTI NE antimicrobia l susceptibili ty COMMEN T S = Susce ptibl e; I = Inter media te; R = Resis tant P = Posit jae; N = Negat jae MICS are expre ssed in micro grams per mL Antib iotic RSLT# 1 RSLT# 2 RSLT# 3 RSLT# 4 Ampic illin R Cefaz selvin R Cefep seth S Ceftr iaxon e S Cefur oxime S Cipro floxa gema S Genta micin S Imipe nem S Levof loxac in S Nitro furan toin R Piper acill in/Ta zobac richards S Tetra cycli ne R Tobra mycin S Not Available [facility] ([facility]) [address] [facility], [place], [address], 12/15/2023 15:15:12 12/10/19 24 12/10/2023 urina lysis , dipst ick Leukocytes Modera te Not Available In-Office Order Internal Use Only DO Not Attach Compendium DO Not Attach Compendium, Do Not Delete/merge, [id number] 12/10/2023 12:11:20 12/10/1912/10/2023 urina lysis , dipst ick Nitrite negati ve Not Available In-Office Order Internal Use Only DO Not Attach Compendium DO Not Attach Compendium, Do Not Delete/merge, 12/10/2023 12:11:20 12/10/1912/10/2023 urina lysis , dipst ick Urobilinogen .2 Not Available In-Of fice Order Internal Use Only DO Not Attach Compendium DO Not Attach Compendium, Do Not Delete/merge, 12/10/2023 12:11:20 06/13/20 24 12/10/2023 urina lysis , dipst ick Protein Negati ve Not Available In-Office Order Internal Use Only DO Not Attach Compendium DO Not Attach Compendium, Do Not Delete/merge, 12/10/2023 12:11:20 12/10/19 24 12/10/2023 urina lysis , dipst ick pH 7.0 Not Available In-Office Order Internal Use Only DO Not Attach Compendium DO Not Attach Compendium, Do Not Delete/merge, 12/10/2023 12:11:20 12/10/19 24 12/10/2023 urina lysis , dipst ick Blood Modera te Not Available In-Office Order Internal Use Only DO Not Attach Compendium DO Not Attach Compendium, Do Not Delete/merge, 12/10/2023 12:11:20 12/10/19 24 12/10/2023 urina lysis , dipst ick Specific [place] 1.025 Not Available In-Off ice Order Internal Use Only DO Not Attach Compendium DO Not Attach Compendium, Do Not Delete/merge, 12/10/2023 12:11:20 12/10/19 24 12/10/2023 urina lysis , dipst ick Ketone Negati ve Not Available In-Office Order Internal Use Only DO Not Attach Compendium DO Not Attach Compendium, Do Not Delete/merge, 12/10/2023 12:11:20 12/10/19 24 12/10/2023 urina lysis , dipst ick Bilirubin Negati ve Not Available In-Office Order Internal Use Only DO Not Attach Compendium DO Not Attach Compendium, Do Not Delete/merge, 12/10/2023 12:11:20 12/10/19 24 12/10/2023 urina lysis , dipst ick Glucose Negati ve Not Available In-Office Order Internal Use Only DO Not Attach Compendium DO Not Attach Compendium, Do Not Delete/merge, 12/10/2023 12:11:20 12/10/19 24 12/10/2023 urina lysis , dipst ick Appearance Slight ly Cloudy Not Available In-Office Order Internal Use Only DO Not Attach Compendium DO Not Attach Compendium, Do Not Delete/merge, [id number] 12/10/2023 12:11:20 12/10/1912/10/2023 urina lysis , dipst ick Color Yellow Not Available In-Office Order Internal Use Only DO Not Attach Compendium DO Not Attach Compendium, Do Not Delete/merge, [id number] 12/10/2023 12:11:20 04/01/20 24 04/07/2024 PROTH ROMBI N TIME, INR prothrombin time 25.0 sec above high normal Refer ence Range : 18 years and older : 9.1 - 12.0 Not Available [facility] [address] [place], [address], 04/07/2024 15:12:11 04/01/20 24 04/07/2024 PROTH ROMBI N TIME, INR INR 2.5 ratio above high normal Refer ence Range : >1 month : 0.9 - 1.2 Not Available [facility] [address] [place], [address], 04/07/2024 15:12:11 05/06/20 24 05/10/2024 PROTH ROMBI N TIME, INR prothrombin time 26.8 sec above high normal Refer ence Range : 18 years and older : 9.1 - 12.0 Not Available [facility] [address] [place], [address], 05/10/2024 06:19:07 05/06/20 24 05/10/2024 PROTH ROMBI N TIME, INR INR 2.7 ratio above high normal Refer ence Range : >1 month : 0.9 - 1.2 Not Available [facility] [address] [place], [address], 05/10/2024 06:19:07 06/30/19 25 07/01/2024 PROTH ROMBI N TIME (PT) INR 1.8 0.9-1. 2 above high normal Refer ence inter jonathan is for non-a ntico agula edith patie nts. Sugge sted INR thera peuti c range for Vitam in K antag onist thera py: Stand danisha Dose (mode rate inten sity thera peuti c range ): 2.0 - 3.0 Highe r inten sity thera peuti c range 2.5 - 3.5 Not Available [facility] ([facility]) [address] [place], [address], 07/01/2024 08:26:08 06/30/19 25 07/01/2024 PROTH ROMBI N TIME (PT) prothrombin time 18.9 sec 9.1-12 .0 above high normal Not Available [facility] ([facility]) [address] [place], [address], 07/01/2024 08:26:08 09/06/19 25 09/06/2024 PROTH ROMBI N TIME (PT) INR 1.8 0.9-1. 2 above high normal Refer ence inter jonathan is for non-a ntico agula edith patie nts. Sugge sted INR thera peuti c range for Vitam in K antag onist thera py: Stand danisha Dose (mode rate inten sity thera peuti c range ): 2.0 - 3.0 Highe r inten sity thera peuti c range 2.5 - 3.5 Not Available [facility] ([facility]) [address] [place], [address], 09/06/2024 08:25:45 09/06/19 25 09/06/2024 PROTH ROMBI N TIME (PT) prothrombin time 19.0 sec 9.1-12 .0 above high normal Not Available [facility] ([facility]) [address] [place], [address], 09/06/2024 08:25:45 10/08/19 25 10/08/2024 PROTH ROMBI N TIME (PT) INR 3.0 0.9-1. 2 above high normal Refer ence inter jonathan is for non-a ntico agula edith patie nts. Sugge sted INR thera peuti c range for Vitam in K antag onist thera py: Stand danisha Dose (mode rate inten sity thera peuti c range ): 2.0 - 3.0 Highe r inten sity thera peuti c range 2.5 - 3.5 Not Available [facility] ([facility]) [address] [facility], [place], [address], 10/08/2024 09:06:04 10/08/19 25 10/08/2024 PROTH ROMBI N TIME (PT) prothrombin time 29.8 sec 9.1-12 .0 above high normal Not Available [facility] ([facility]) [address] [facility], [place], [address], 10/08/2024 09:06:04 01/13/20 23 01/12/2023 US, doppl er, venou s No observ ation record ed. [address], [place], [address], 01/12/2023 17:09:59 Result Notes None recorded. Problems Name Problem SNOMED Code Status Onset Date Resolution Date Notes Provider Name and Address Organization Details Recorded Time Chronic deep venous thrombosis of lower extremity 9063973727335 06 Active 2019 Julio Flores MD Attn: Audrey goodson,[address] [place], [address], [facility] 0 15:00:51 History of pulmonary embolus 650802905 Active 2019 Julio Flores MD Attn: Audrey goodson,[address] [place], [address], [facility] 0 15:01:26 Bilateral raised intraocular pressure 8430531579001 9100 Active 2019 Julio Flores MD Attn: Audrey goodson,[address] [place], [address], [place] [facility] 0 15:24:58 Obesity 343149466 Active 2020 Julio Flores MD Attn: Audrey goodson,[address] [place], [address], [place] [facility] 1 17:36:11 Contact dermatitis caused by urushiol from [facility] jermaine 848720855 Active 2020 Julio Flores MD Attn: Audrey goodson,[address] [facility], [place], [address], [place] [facility] 1 17:36:55 Screening for malignant neoplasm of prostate Active 2020 Julio Flores MD Attn: Audrey goodson,[address] [facility], [place], [place], [address] [place] [address] 2, [place] [facility] 1 17:42:05 Screening for malignant neoplasm of colon done 2417129442476 01 Active 2021 Julio Flores MD Attn: Audrey goodson,[address] [facility], [place], [address], [place] [facility] 2 16:45:13 Low back pain 897330805 Active 2021 Julio Flores MD Attn: Audrey goodson,[address] [place], [place], [address] [place] [address] 2, [place] [facility] 2 12:50:41 Hyperlipide maría 38907758 Active 2021 Julio Flores MD Attn: Audrey goodson,[address] [place], [address], [place] [facility] 2 11:34:08 Blood in urine 16169870 Active 2023 Julio Flores MD Attn: Audrey goodson,[address] [facility], [place], [address], [place] [facility] 4 12:10:50 Long-term current use of anticoagula nt 043560023 Active 2023 Julio Flores MD Attn: Audrey goodson,[address], [place], [address], [place] [facility] 4 12:15:56 Urinary tract infectious disease 88671242 Active 2023 Julio Flores MD Attn: Audrey goodson,[address], [place], [address], [place] [facility] 4 13:58:15 Spasm 16355684 Active 2024 Neck Julio Flores MD Attn: Audrey goodson,[address], [place], [address], [place] [facility] 5 12:21:04 Elevated blood-press ure reading without diagnosis of hypertensio n 671982478 Active 2024 Julio Flores MD Attn: Audrey goodson,[address] [facility], [place], [address], [place] [facility] 5 12:28:42 Problem Notes None recorded. Procedures Surgical History Date Name Laterality Status Provider Name and Address Organization Details Recorded Time Hernia Repair completed Quynh Perez MA [place] - [place] 01/11/2020 14:20:05 Imaging Results Imaging Date Name Status LastModified by Organiz ation Details LastModified Time 01/12/2023 US, doppler, venous completed [place] [address], [place], [address], 01/12/2023 17:09:59 Procedure Notes None recorded. Medical Equipment None Reported. Allergies No known drug allergies Medications Name Sig Start Date Stop Date Status Note LastModified by Organization Details LastModified Time doxycycline hyclate 100 mg capsule TAKE 1 CAPSULE BY MOUTH TWICE DAILY FOR 7 DAYS 02/17 completed Not Available Not Available Not Available cefuroxime axetil 250 mg tablet TAKE 1 TABLET BY MOUTH TWICE A DAY 08/16 completed Not Available Not Available Not Available warfarin 10 mg tablet TAKE 1 TABLET BY MOUTH EVERY DAY 2024 active Not Available Not Available Not Avai lable warfarin 7.5 mg tablet TAKE 1 TABLET BY MOUTH EVERY DAY 2024 active Not Available Not Available Not Avai lable ciprofloxac in 500 mg tablet TAKE 1 TABLET BY MOUTH EVERY 12 HOURS 08/16 completed Not Available Not Available Not Available triamcinolo ne acetonide 0.1 % topical cream APPLY A THIN LAYER TO THE AFFECTED AREA TWICE A DAY 10/23 completed Not Available Not Available Not Available warfarin 4 mg tablet TAKE 1 TABLET BY MOUTH EVERY DAY IN THE EVENING active Not Available Not Available No t Available timolol maleate 0.25 % eye drops INSTILL 1 DROP INTO BOTH EYES TWICE A DAY 02/17 completed Not Available Not Available Not Available cephalexin 500 mg capsule TAKE 1 CAPSULE BY MOUTH EVERY 6 HOURS X 7 DAYS 02/17 completed Not Available Not Available Not Available simvastatin 20 mg tablet TAKE 1 TABLET BY MOUTH EVERY DAY IN THE EVENING active Not Available Not Available No t Available brimonidine 0.2 % eye drops INSTILL 1 DROP INTO BOTH EYES TWICE A DAY active Not Available Not Available No t Available hydroxyzine HCl 25 mg tablet TAKE 1 TABLET 3 TIMES A DAY BY ORAL ROUTE NEEDED. active Not Available Not Available No t Available cefuroxime axetil 500 mg tablet TAKE 1 TABLET BY MOUTH TWICE DAILY FOR 7 DAYS 08/16 completed Not Available Not Available Not Available methylpredn isolone 4 mg tablets in a dose pack TAKE 6 TABLETS ON DAY 1 DIRECTED ON PACKAGE AND DECREASE BY 1 TAB EACH DAY FOR A TOTAL OF 6 DAYS 03/11 completed Not Available Not Available Not Available timolol maleate 0.5 % eye drops INSTILL 1 DROP INTO BOTH EYES TWICE A DAY 08/16 completed Not Available Not Available Not Available lisinopril 2.5 mg tablet TAKE 1 TABLET BY MOUTH EVERY DAY active Not Available Not Available No t Available cyclobenzap rine 5 mg tablet TAKE 1 TABLET BY MOUTH TWICE A DAY NEEDED active Not Available Not Available No t Available nitrofurant oin monohydrate /macrocryst als 100 mg capsule TAKE 1 CAPSULE BY MOUTH TWICE A DAY active Not Available Not Available No t Available BinaxNOW COVID-19 Ag Self Test kit USE DIRECTED 02/17 completed Not Available Not Available Not Available Vitals Date Recorded Body height Body mass index (BMI) Body weight Body temperature Heart rate Oxygen saturation Oxygen saturation in Arterial blood by Pulse oximetry Systolic blood pressure Diastolic blood pressure Provider Name and Address Organization Details Last Updated DateTime 2 185.42 cm 32.2 kg/m2 546790. 54 g 98.3 [degF] 78 /min 97 % 97 % 136 mm[Hg] 88 mm[Hg] Quynh Perez MA [facility] 2 12:15:37 Date Recorded Body height Body mass index (BMI) Body weight Heart rate Body temperature Oxygen saturation Oxygen saturation in Arterial blood by Pulse oximetry Systolic blood pressure Diastolic blood pressure Provider Name and Address Organization Details Last Updated DateTime 3 185.42 cm 31.8 kg/m2 194791. 76 g 63 /min 98.3 [degF] 98 % 98 % 160 mm[Hg] 80 mm[Hg] Quynh Perez MA [facility] 3 16:23:53 Date Recorded Body height Body mass index (BMI) Body weight Body temperature Oxygen saturation Oxygen saturation in Arterial blood by Pulse oximetry Heart rate Systolic blood pressure Diastolic blood pressure Provider Name and Address Organization Details Last Updated DateTime 3 185.42 cm 31.8 kg/m2 342198. 76 g 98.2 [degF] 98 % 98 % 75 /min 164 mm[Hg] 80 mm[Hg] Quynh Perez MA [facility] 3 12:11:53 Date Recorded Body height Body mass index (BMI) Body weight Heart rate Oxygen saturation Oxygen saturation in Arterial blood by Pulse oximetry Systolic blood pressure Diastolic blood pressure Provider Name and Address Organization Details Last Updated DateTime 4 185.42 cm 30.6 kg/m2 462803. 43 g 55 /min 98 % 98 % 158 mm[Hg] 80 mm[Hg] Quynh Perez MA [facility] 4 11:50:00 Date Recorded Body height Body mass index (BMI) Body weight Heart rate Oxygen saturation Oxygen saturation in Arterial blood by Pulse oximetry Systolic blood pressure Diastolic blood pressure Provider Name and Address Organization Details Last Updated DateTime 5 185.42 cm 29 kg/m2 29836.6 1 g 96 /min 99 % 99 % 169 mm[Hg] 83 mm[Hg] Uri Akbar MA [facility] 5 11:52:55 Social History Question Answer Notes LastModified by Organizat ion Details LastModified Time Tobacco Smoking Status Former Smoker Quynh Perez MA [facility], [place] - [place] 01/11/2020 14:19:50 What Was The Date Of Your Most Recent Tobacco Screening? 08/16/2024 [email or web address] Information not available 08/16/2024 Has Tobacco Cessation Counseling Been Provided? No Information not available 01/21/2023 Do You Or Have You Ever Used Any Other Forms Of Tobacco Or Nicotine? No Information not available 01/21/2023 Sex: Unknown Functional Status None recorded. Mental Status None recorded. Family History Relationship Description Onset Age of this Age Resolved Age Notes LastModified by Organization Details LastModified Time Father No current problems or disability [email or web address] Not available 01/10 14:19:43 Mother No current problems or disability [email or web address] Not available 01/10 14:19:43 Medical History No medical history recorded. Past Encounters Encounter ID Performer Location Encounter Start Date Encounter Closed Date Diagnosis/Indication Diagnosis SNOMED-CT Code Diagnosis ICD10 Code Diagnosis Note [id number] [facility] [address] [place] [id number] 01/11/2020 13:54:57 01/12/2020 14:36:12 Chronic deep venous thrombosis of lower extremity 4367789179 98856 I82.509 History of pulmonary embolus 034697131 Z86.711 Bilateral raised intraocular pressure 4117336012 3108646 H40.494 [id number] Julio Flores MD [facility] (Adult Med) [address] [place] [id number] 01/29/2021 16:20:00 01/30/2021 09:49:30 Chronic deep venous thrombosis of lower extremity 4647496810 32516 I82.509 Contact de rmatitis caused by urushiol from [facility] jermaine 465651050 L25.5 Obesity 791630257 E66.9 Screening for malignant neoplasm of prostate 381620762 Z12.5 Screening for malignant neoplasm of colon 564260087 Z12.11 [id number] MD Gina Null (Adult Med) [address] [place] [phone] 10/23/2021 15:38:59 10/28/2021 12:13:03 Screening for malignant neoplasm of colon done 5477549883 30090 Z12.11 History of pulmonary embolus 040524436 Z86.711 Cont current rx Obesity 522939359 E66.9 [id number] MD Gina Null (Adult Med) [address] [place] [phone] 11/11/2021 11:40:15 11/12/2021 08:21:46 Contact dermatitis caused by urushiol from [facility] jermaine 121397376 L25.5 [id number] MD Gina Null (Adult Med) [address] [place] [id number] 03/11/2022 11:59:04 03/12/2022 10:58:21 Low back pain 120418952 M54.50 Screening for malignant neoplasm of prostate 368086703 Z12.5 History of pulmonary embolus 455889627 Z86.711 Cont current rx Screening for malignant neoplasm of colon 398216180 Z12.11 Obesity 873006006 E66.9 [id number] MD Gina Null (Adult Med) [address] [place] [id number] 01/21/2023 15:56:39 01/22/2023 15:05:01 Obesity 637423626 E66.9 History of pulmonary embolus 555373542 Z86.711 Cont current rx [id number] MD Gina Null (Adult Med) [address] [place] [id number] 02/17/2023 11:43:20 02/20/2023 12:08:07 Obesity 943659773 E66.9 Chronic de ep venous thrombosis of lower extremity 0933692852 97340 I82.509 Hyperlipidemia 60806546 E78.5 [id number] MD Gina Null (Adult Med) [address] [place] [address] 12/10/2023 11:36:48 12/11/2023 10:59:30 Obesity 036103856 E66.8 Chronic de ep venous thrombosis of lower extremity 9880271465 96580 I82.509 History of pulmonary embolus 260504302 Z86.711 Cont current rx. Advised avoidance of lots of leafy vegetbles Hyperlipidemia 66809919 E78.5 Low back pain 697826532 M54.50 Screening for malignant neoplasm of prostate 189825048 Z12.5 Screening for malignant neoplasm of colon done 8535800972 73179 Z12.11 Blood in urine 20215548 R31.9 Long-term current use of anticoagulant 142423567 Z79.01 [id number] Julio Flores MD [facility] (Adult Med) [address] [place] [id number] 08/16/2024 11:24:03 08/19/2024 13:25:37 Chronic deep venous thrombosis of lower extremity 5422668686 67384 I82.509 Spasm 04268475 R25.2 Elevated blood-pressure reading without diagnosis of hypertension 094516359 R03.0 Will give trial of antihypert ensive Health Concerns Section Related Observation LastModified by Organization Detai ls LastModified Time None Recorded Concern Status LastModified by Organization Details LastModified Time None Recorded Advance Directives Directive None Recorded Payers Encounter Date Sequence Insurance Name Policy Number Policy Walker Covered Member ID Walker Member ID Guarantor Name 03/11/2022 1 [employer] - [employer] (MEDICARE REPLACEMENT/ ADVANTAGE - HMO) [id number] L Sherif Smith [place] [id number] Sherif Lamacchia 01/21/2023 1 [employer] - [employer] (MEDICARE REPLACEMENT/ ADVANTAGE - HMO) [id number] L Sherif Luis [place] [id number] Sherif Lamacchia 02/17/2023 1 [employer] - [employer] (MEDICARE REPLACEMENT/ ADVANTAGE - HMO) [id number] L Sherfi Smith [place] [id number] Sherif Lamacchia 12/10/2023 1 [employer] - [employer] (MEDICARE REPLACEMENT/ ADVANTAGE - HMO) [id number] L Sherif Smith [place] [id number] Sherif Lamacchia 08/16/2024 1 [employer] - [employer] (MEDICARE REPLACEMENT/ ADVANTAGE - HMO) [id number] L Sherif Smith [place] [id number] Sherif [place] Notes Date Note Type Note Provider Name and Address Organization Details Recorded Time 03/11/2022 text/html Spasms in lower back for the past five days. Did not do cologuard. Has been exercising a lot. Has incomplete emptying of bladder. Julio Flores MD Attn: Selene,[address] [facility], [place], [address], [facility] 03/11/2022 13:02:17 01/21/2023 text/html Seen in ED at [facility] for redness in his left leg. He was treated for cellulitis. Pt had infection in his leg. Julio Flores MD Attn: Accounting,[address] [facility], [place], [address], [facility] 01/21/2023 17:23:13 02/17/2023 text/html Is currently on Warfarin 8 mg/d at present time. Pt apparently using Vit K. Has been using 21.5 mg warfarin daily Julio Flores MD Attn: Selene,[address] [place], [address], [facility] 02/17/2023 12:53:41 12/10/2023 text/html Here for blood i n stool three days ago. Otherwise doing well Julio Flores MD Attn: Accounting,[address] [facility], [place], [address], [facility] 12/10/2023 12:18:19 08/16/2024 text/html Here for regular f/u. Occasional soilage of urine on underwear. No hesitancy. BP at home usually lower than at office. Neck muscles tighten when he exercises since traumatic episode two months ago. Julio Flores MD Attn: Accounting,[address] [facility], [place], [address], [place] [facility] 08/16/2024 12:34:13
--- OUTSIDE RECORDS SUMMARY | 2024-10-12 21:34 | XMS_ITS | Clinical Summary ---
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
--- OUTSIDE RECORDS SUMMARY | 2024-10-12 21:34 | XMS_ITS | Encounter Summary ---
Author Organization [facility] Address 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
--- OUTSIDE RECORDS SUMMARY | 2024-10-12 21:34 | XMS_ITS | Encounter Summary ---
Author Organization [facility] Address 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
--- OUTSIDE RECORDS SUMMARY | 2024-10-12 21:34 | XMS_ITS | Encounter Summary ---
Author Organization [facility] Address 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
--- OUTSIDE RECORDS SUMMARY | 2024-10-12 21:34 | XMS_ITS | CONTINUITY OF CARE DOCUMENT ---
Author Name milandangelomarilee Address Unknown Organization [facility] Address [address] [place] [address] Phone [phone] Care Team Providers Care Encapsulator Name Role Phone Sagar MITCHELL, Bryson Unavailable ANA LAURA MITCHELL, TYRESE Unavailable Jan DELEON MD, YANCY Unavailable INSURANCE PROVIDERS Payer name Policy type / Coverage type [place] red alliance party ID [id number] PPO Other [id number]
--- OUTSIDE RECORDS SUMMARY | 2024-10-12 21:34 | XMS_ITS | Patient Health Record ---
Author Organization [facility] Address [address] [place] [address] Care Team Providers Care Audio Director Name Role Phone Dannie De La Garza Primary Care Provider Reason For Referral No Information Immunizations Vaccine Route Administration Date Status Comme nts COVID-19 Moderna 2nd IM Intramuscular 08/30/2020 Administered COVID-19 Moderna 1ST IM Intramuscular 08/02/2020 Administered EUA date 0. Screening reviewed and consent signed. Patient tolerated well. Plan Of Treatment No Information
[2024-10-12 21:37] VITALS: BP 205/83; PULSE 72; RESP 14; TEMP 36.5; O2SAT 100
[2024-10-12 22:09] VITALS: BP 180/80; PULSE 64; RESP 16; O2SAT 100
--- OUTSIDE RECORDS SUMMARY | 2024-10-12 22:49 | XMS_ITS | Encounter Summary ---
Author Organization [facility] Address 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
--- OUTSIDE RECORDS SUMMARY | 2024-10-12 22:49 | XMS_ITS | Encounter Summary ---
Author Organization [facility] Address [address] [place] [address] Care Team Providers Care Resource Program Teacher Name Role Phone Ayaz Parikh MD Primary [...] on file Legal Sex Male 3:25 AM LOCUM TENENS PSYCHIATRIST Gender Identity Not on file Sexual Orientation Not on file documented as of this encounter Plan of Treatment Not on file documented as of this encounter Visit Diagnoses Diagnosis Localized superficial swelling, mass, or lump- Primary documented in this encounter Care Teams Resource Program Teacher Relationship Specialty Start Date End Date Ayaz Parikh MD PCP - General 03/31/06 documented as of this encounter
--- OUTSIDE RECORDS SUMMARY | 2024-10-12 22:49 | XMS_ITS | Clinical Summary ---
Author Organization 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
--- OUTSIDE RECORDS SUMMARY | 2024-10-12 22:49 | XMS_ITS | CONTINUITY OF CARE DOCUMENT ---
Author Name milandangelomarilee Address Unknown Organization [facility] Address [address] [place] [address] Phone [phone] Care Team Providers Care Manager Terminal Name Role Phone Sagar MITCHELL, Bryson Unavailable ANA LAURA MITCHELL, TYRESE Unavailable Jan DELEON MD, YANCY Unavailable INSURANCE PROVIDERS Payer name Policy type / Coverage type [place] red libertarian ID [employer] PPO Other [id number]
--- OUTSIDE RECORDS SUMMARY | 2024-10-12 22:49 | XMS_ITS | Encounter Summary ---
Author Organization [facility] Address 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
[2024-10-12] MEDS: TETANUS,DIPHTHERIA,AC PERTUSSIS ADULT (0.5 ML) BOOSTRIX IM (23:47)
--- NOTE | 2024-10-12 23:57 | ED_ITS ---
HPI - Epistaxis General Chief complaint: Epistaxis Stated complaint: Nosebleed vs razor cut Time Seen by Provider: 10/12/24 22:38 Source: patient Mode of arrival: ambulatory Limitations: no limitations History of Present Illness HPI Narrative: Patient is a 73-year-old male who presents the ED with report of a laceration to his nose. Patient reports he was shaving his face today when he nicked his L nostril. States he has been unable to control the bleeding since then. Has tried holding pressure without improvement. 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 Denies dizziness, lightheadedness, pain. Related Data Allergies Allergy/AdvReac Type Severity Reaction Status Date / Time No Known Allergies Allergy Mild Verified 10/12/24 21:33 Review of Systems Review of Systems: All systems reviewed & are unremarkable except as noted in HPI. All systems reviewed & are unremarkable except as noted in HPI and below Exam Narrative: GENERAL: Well appearing, well-nourished, non-toxic, in no acute distress. HEAD: Normocephalic, atraumatic. ENT: Dried blood in L vestibule. Very tiny pinpoint superficial laceration to outer edge of L nostril with minimal persistent bleeding. No septal hematoma. RESPIRATORY: Airway patent, respirations nonlabored. CARDIOVASCULAR: Regular rate and rhythm MUSCULOSKELETAL: Moves all extremities. No gross deformities. SKIN: Warm, dry, normal color. NEURO: A&O X3. Speech clear. PSYCHIATRIC: Appropriate mood and affect. Normal interaction. Course Vital Signs Vital signs: Vital Signs Temperature 97.7 F 10/12/24 21:37 Pulse Rate 72 10/12/24 21:37 Respiratory Rate 14 10/12/24 21:37 Blood Pressure 205/83 H 10/12/24 21:37 Pulse Oximetry 100 10/12/24 21:37 Oxygen Delivery Room Air 10/12/24 21:37 Temperature 97.7 F 10/12/24 21:37 Pulse Rate 64 10/12/24 22:09 Respiratory Rate 16 10/12/24 22:09 Blood Pressure 180/80 H 10/12/24 22:09 Pulse Oximetry 100 10/12/24 22:09 Oxygen Delivery Room Air 10/12/24 21:37 MDM - Epistaxis MDM Narrative Medical decision making narrative: Pinpoint laceration/abrasion to L nostril with active bleeding, on warfarin. Utilized silver nitrate to cauterize wound with success. Patient was monitored in the ED for a short while afterwards with no recurrence of bleeding. Tetanus updated in the ED. Discussed close f/u with PCP, given return precautions. D/C in stable condition. Medical Records Attestation: I reviewed the patient's medical records. Discharge Plan Discharge Clinical Impression: Abrasion of nose Qualifiers: Encounter type: initial encounter Qualified Code(s): S00.31XA - Abrasion of nose, initial encounter Patient Disposition: Home Condition: Stable Instructions: Antibiotic Form, Nosebleed (ED) Additional Instructions: Avoid rubbing or blowing your nose for the next few days. If bleeding recurs, hold continuous pressure for at least 40 minutes. If bleeding is still persistent after 1 hour, return to the ED for further evaluation. Additionally, return if you experience severe pain, weakness, passing out, significant dizzine ss, or any other symptoms of concern. Patient Language: Bulgarian Prescriptions: No Action sulfamethoxazole-trimethoprim [Bactrim DS] 800-160 mg tablet 1 tablet PO Q12H 7 Days Qty: 14 0RF cephalexin 500 mg capsule 500 mg PO Q6H 7 Days Qty: 28 0RF Follow-up/Referrals: Mark,Julio Concepcion MD [Primary Care Provider] - Time of Disposition: 00:33
== END 2024-10-13 00:38 | disposition home or self-care (01) ==
PROVIDERS: Emergency Provider Physician Assistant; PCP Internal Medicine Gastroenterology
DX: S00.31XA Abrasion of nose, initial encounter (principal); Z23 Encounter for immunization; Z79.01 Long term (current) use of anticoagulants; W26.8XXA Contact with other sharp object(s), not elsewhere classified, initial encounter
CPT/HCPCS: 30901; 90471; 90715; 99283